=== PATIENT | female | born 1940 | race Caucasian/White ===

== ENCOUNTER → 2017-02-18 | Outpatient (CLI) | payer MEDICARE, OTHER | LOC: COL.RAD 09:09 | DX: M41.85 Other forms of scoliosis, thoracolumbar region (principal); G62.9 Polyneuropathy, unspecified | CPT/HCPCS: A9503 ==

== ENCOUNTER → 2021-03-23 | Outpatient (CLI) | payer MEDICARE, OTHER | LOC: ZCOL.LAB 16:49 | DX: R60.0 Localized edema (principal) ==